=== PATIENT | female | born 1940 | race Caucasian/White ===

== ENCOUNTER → 2019-02-15 14:18 | Outpatient (CLI) | payer MEDICARE, OTHER, SELFPAY ==
--- NOTE | 2019-02-15 | TOBX_PTH ---
PATIENT: ASHLYN MARTINEZ LOC: [facility] U#:[id number] AGE/SX: 85/F ROOM: RE02/15/[address]: Dr. Kyler Leija DDS : 1940 BED: DIS: SPEC #: [id number] RECD: 02/15/19 16:50 STATUS: ALEX CLARITA #: [id number] GEOVANNY: 02/15/19 00:[address]: Kyler Leija DEPT: SURGICAL PATHOLOGY RECD BY: Lisa Whiting Tissues: Tongue, NOS Procedures: PAS Fungus (control) Special Stain Group I Surgery Specimen Level IV HEADER OPERATION: Left tongue biopsy PRE-OP DIAGNOSIS: Left tongue lesion TISSUE SUBMITTED: Left tongue biopsy MICROSCOPIC DIAGNOSIS Left tongue lesion, biopsy: A piece of squamous mucosa with acanthosis and parakeratosis. Negative for malignancy. Special stain for fungi is negative for organisms; matched control is appropriate. SJ:óscar 02/16/19 MICROSCOPIC DESCRIPTION Slides are reviewed. GROSS DESCRIPTION Received in fixative is one container labeled with the patient's name and designated tongue. The specimen consists of a piece of delatorre mucosal tissue measuring 0.5 x 0.4 x 0.3 cm. The entire specimen is submitted in one cassette. / SJ:rg 02/15/19 TC:5 CPT: 56601, 73697
== END ==
PROVIDERS: Referring Provider Dentist Oral and Maxillofacial Surgery; Visit Provider Dentist Oral and Maxillofacial Surgery
DX: K14.3 Hypertrophy of tongue papillae (principal)
CPT/HCPCS: 88305; 88312